=== PATIENT | female | born 1955 | race Caucasian/White ===

== ENCOUNTER 2017-04-25 11:57 | Emergency (ER) | payer OTHER ==
[~2017-04-25] VITALS: Ht 177.8 cm; Wt 95.0 kg
[~2017-04-25 11:57] MED LIST: ADVAI250I; ALBU6.7H INH; ANAS1 PO; CEFU1TAB43 PO; DIOV320T PO; LEXA20TA PO; MEDR4PAK3 PO; NORV2.5T11 PO; TOPI100 PO; ZAFI1TAB2 PO; ZOCO40TA PO
[2017-04-25] MEDS ORDERED: IOHEXOL 350 MG/ML 10 ML VIAL (for RAD DIAG) IVCONTRAST ONE (11:58)
[2017-04-25 11:59] VITALS: BP 149/66; PULSE 73; RESP 16; TEMP 98.1; O2SAT 99
[2017-04-25 12:00] VITALS: BP_SYST 127; BP_SYST 129; BP_SYST 139; BP_DIAS 58; BP_DIAS 62; BP_DIAS 68; RESP 15; RESP 16
[2017-04-25] MEDS ORDERED: SODIUM CHLOR 0.9% 1000 ML INJ 1,000 ML IV SCH ×2 (12:10→13:58)
[2017-04-25 12:17] VITALS: BP 123/58; PULSE 76; RESP 16; O2SAT 98
[2017-04-25 12:30] LABS: AUTOMATED NEUTROPHIL # 4.5 TH/MM3 (1.8-7.7); BASOPHIL % 0.4 % (0.0-2.0); EOSINOPHIL # 0.1 TH/MM3 (0-0.4); EOSINOPHIL % 1.3 % (0.0-4.0); HEMATOCRIT 39.7 % (35.0-46.0); HEMO FLAGS DIFF FINAL; LYMPH % 29.4 % (9.0-44.0); MEAN CELL VOLUME 84.2 FL (80.0-100.0); MEAN CORPUSCULAR HEMOGLOBIN 27.1 PG (27.0-34.0); MEAN CORPUSCULAR HGB CONC 32.2 % (32.0-36.0); MONO % 3.5 % (0.0-8.0); NEUT % 65.4 % (16.0-70.0); PLATELET COUNT 229 TH/MM3 (150-450); RED BLOOD COUNT 4.72 MIL/MM3 (4.00-5.30); WHITE BLOOD COUNT 6.9 TH/MM3 (4.0-11.0)
[2017-04-25 12:56] LABS: ALT (GPT) 23 U/L (10-53); ANION GAP 9 MEQ/L (5-15); BICARBONATE 24.1 MEQ/L (21.0-32.0); BLOOD UREA NITROGEN 14 MG/DL (7-18); CHLORIDE 107 MEQ/L (98-107); GLOMERULAR FILTRATION RATE 66 ML/MIN (>89); POTASSIUM 3.5 MEQ/L (3.5-5.1); SODIUM (NA) 140 MEQ/L (136-145)
[2017-04-25 13:00] VITALS: BP 162/76; PULSE 58; RESP 17; O2SAT 98
[2017-04-25 13:07] LABS: ALKALINE PHOSPHATASE 85 U/L (45-117); AST (GOT) 17 U/L (15-37); TOTAL BILIRUBIN ADULT 0.4 MG/DL (0.2-1.0)
[2017-04-25 13:15] LABS: CREATINE KINASE 66 U/L (26-192)
[2017-04-25 13:15] LABS: BACTERIA, URINE RARE /hpf; BLOOD, URINE NEG (NEG); COMMENT (UR) CULT NOT INDICATED; CULTURE IF INDICATED CULT NOT INDICATED; GLUCOSE,URINE NEG (NEG); HYALINE CAST, URINE 1 /lpf (RARE); KETONE, URINE NEG (NEG); NITRITE,URINE NEG (NEG); SQUAMOUS EPITHELIAL CELL URINE <1 /hpf (0-5); URINE COLOR LIGHT-YELLOW (YELLW/STRAW)
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
--- NOTE | 2017-04-25 13:34 | RADRPT ---
EXAM DATE/TIME: 04/25/2017 13:10 [facility] COMPARISON: No previous studies available for comparison. INDICATIONS : Abdomen pain for four days with vomiting. IV CONTRAST: 90 cc Omnipaque 350 (iohexol) IV ORAL CONTRAST: No oral contrast ingested. RADIATION DOSE: 15.54 CTDIvol (mGy) MEDICAL HISTORY : Hypertension. Carcinoma, breast. SURGICAL HISTORY : section. Hernia repair. ENCOUNTER: Initial ACUITY: 3 days PAIN SCALE: 6/10 LOCATION: Bilateral lower quadrant TECHNIQUE: Volumetric scanning of the abdomen and pelvis was performed. Using automated exposure control and ad justment of the mA and/or kV according to patient size, radiation dose was kept as low as reasonably achievable to obtain optimal diagnostic quality images. DICOM format image data is available electro nically for review and comparison. FINDINGS: LOWER LUNGS: The visualized lower lungs are clear. LIVER: Homogeneous density without lesion. There is no dilation of the biliary tree. No calcified gallston es. SPLEEN: Normal size without lesion. PANCREAS: Within normal limits. KIDNEYS: Normal in size and shape. There is no mass, stone or hydronephrosis. ADRENAL GLANDS: Within normal limits. VASCULAR: There is no aortic aneurysm. BOWEL/MESENTERY: The stomach, small bowel, and colon demonstrate no acute abnormality. There is no free intraperitone al air or fluid. ABDOMINAL WALL: Within normal limits. RETROPERITONEUM: There is no lymphadenopathy. BLADDER: No wall thickening or mass. REPRODUCTIVE: Fibroid uterus is noted. INGUINAL: There is no lymphadenopathy or hernia. MUSCULOSKELETAL: Within normal limits for patient age. CONCLUSION: Negative, I do not see etiology for abdominal pain. Juan Carlos Hall MD FACR on April 25, 2017 at 13:31 Board Certified Radiologist. This report was verified electronically.
[2017-04-25] MEDS ORDERED: KETOROLAC TROMETHAMINE 30 MG/ML (IVP) VIAL IV PUSH ONE (13:45)
[2017-04-25] MEDS ORDERED: ONDANSETRON HCL 4 MG/2 ML VIAL IV PUSH ONE (13:45)
[2017-04-25] MEDS ORDERED: ZOFR4TAB PO (14:03)
[2017-04-25] MEDS ORDERED: TOPA100T11 PO (14:29)
[2017-04-25] MEDS ORDERED: LEXA20TA PO (14:29)
[2017-04-25] MEDS ORDERED: CARD4TAB2 PO (14:29)
[2017-04-25] MEDS ORDERED: ALBUAER3 INH (14:29)
[2017-04-25] MEDS ORDERED: FLUT1SPR5 EACH NARE (14:29)
[2017-04-25] MEDS ORDERED: BACL10TA PO (14:29)
[2017-04-25] MEDS ORDERED: ADVA250A INH (14:29)
[2017-04-25] MEDS ORDERED: FLUTI110I INH (14:29)
[2017-04-25] MEDS ORDERED: CALC500T35 PO (14:29)
[2017-04-25] MEDS ORDERED: AMLO10 PO (14:29)
[2017-04-25] MEDS ORDERED: MONT10TA2 PO (14:29)
[2017-04-25] MEDS ORDERED: CHOL1CAP6 PO (14:29)
[2017-04-25] MEDS ORDERED: NAPR220C22 PO (14:29)
[2017-04-25] MEDS ORDERED: EPIP0.3I IM (14:29)
[2017-04-25 15:00] VITALS: BP 145/63; PULSE 65; RESP 16; O2SAT 98
--- NOTE | 2017-04-25 23:47 | EKG ---
Date Performed: 04/25/2017 Time Performed: 12:47:53 PTAGE: 61 years EKG: Sinus rhythm NORMAL ECG NO PREVIOUS TRACING DOCTOR: Isidoro Michel Interpretating Date/Time 04/25/2017 23:46:34
== END 2017-04-25 23:07 | disposition home or self-care (01) ==
LOC: NEPC 11:57
DX: R55 Syncope and collapse (principal); J45.909 Unspecified asthma, uncomplicated; E78.00 Pure hypercholesterolemia, unspecified; I10 Essential (primary) hypertension; Z85.3 Personal history of malignant neoplasm of breast
CPT/HCPCS: 74177; 80053; 81001; 82550; 83690; 83735; 84443; 84484; 85025; 93005; 96374; 96375; 99285; J1885; J2405; J7030; Q9967